=== PATIENT | female | born 1965 | race Caucasian/White ===

== ENCOUNTER 2017-05-22 11:16 | Outpatient (CLI) | payer OTHER ==
[~2017-05-22 11:16] MED LIST: Intestinex CAP PO; KLONOPIN1 MG/TAB PO; NEURONTIN300 MG PO; OXYC1TAB9 PO; PANTOPRAZOLE SO40 MG PO; PAXIL30 MG PO; ZEBUTAL CAPSULE1 CAP PO
[2017-05-25] MEDS ORDERED: HYDRODIURIL12.5 MG (12:53)
== END 2017-05-22 11:33 | disposition home or self-care (01) ==
LOC: RAD 11:16
DX: K43.2 Incisional hernia without obstruction or gangrene (principal); Z01.818 Encounter for other preprocedural examination

== ENCOUNTER → 2017-05-31 | Day surgery (SDC) | payer OTHER ==
[~2017-05-31] MED LIST changes: +HYDRODIURIL12.5 MG; +MIRALAX17 GM PO; +ULTRACET PO
== END | disposition home or self-care (01) ==
LOC: ADM 05-25 12:15 → CIR.AMB 06:00
DX: K43.0 Incisional hernia with obstruction, without gangrene (principal)

== ENCOUNTER 2018-12-12 12:19 | Emergency (ER) | payer OTHER ==
[~2018-12-12] VITALS: Ht 160 cm; Wt 72.6 kg
[2018-12-12] MEDS ORDERED: PREDNISONE20 MG PO (16:26)
[2018-12-12] MEDS ORDERED: KETO10TA2 PO (16:26)
== END 2018-12-12 16:30 | disposition home or self-care (01) ==
LOC: ER 12:19
DX: G56.02 Carpal tunnel syndrome, left upper limb (principal)

== ENCOUNTER 2020-04-28 10:28 | Outpatient (CLI) | payer OTHER ==
[~2020-04-28 10:28] MED LIST changes: +KETO10TA2 PO; +PREDNISONE20 MG PO
== END 2020-04-28 11:02 | disposition home or self-care (01) ==
LOC: SONOGRAMA 10:28 → MAMO-SONO 14:15
PROVIDERS: ATTEND Obstetrics & Gynecology
DX: N60.11 Diffuse cystic mastopathy of right breast (principal); Z12.31 Encounter for screening mammogram for malignant neoplasm of breast

== ENCOUNTER 2020-05-14 09:06 | Emergency (ER) | payer OTHER ==
[~2020-05-14] VITALS: Ht 160 cm; Wt 79.4 kg
== END 2020-05-14 15:54 | disposition home or self-care (01) ==
LOC: ER 09:06
DX: L03.116 Cellulitis of left lower limb (principal)

== ENCOUNTER 2022-06-16 19:44 | Emergency (ER) | payer OTHER ==
[~2022-06-16] VITALS: Ht 160 cm; Wt 73.9 kg
== END 2022-06-16 22:59 | disposition home or self-care (01) ==
LOC: ER 19:44
DX: G44.209 Tension-type headache, unspecified, not intractable (principal)